=== PATIENT | male | born 1970 | race African-American/Black ===

== ENCOUNTER 2022-02-05 10:27 | Day surgery (SDC) | payer OTHER ==
[~2022-02-05] VITALS: Ht 175.3 cm; Wt 93.0 kg
[2022-02-05] MEDS ORDERED: LIDOCAINE 2% 100 MG/5 ML UJET TP ONE (12:16)
[2022-02-05] MEDS ORDERED: fentaNYL citrate 0.05 MG/ML VIAL ONE (12:16)
[2022-02-05] MEDS ORDERED: fentaNYL citrate 0.05 MG/ML VIAL IVP ONE (13:35)
== END 2022-02-05 13:25 | disposition home or self-care (01) ==
LOC: MDS 10:27 → MMU 10:28 → MDS 13:25
PROVIDERS: ATTEND Internal Medicine Gastroenterology
DX: Z12.11 Encounter for screening for malignant neoplasm of colon (principal); K63.5 Polyp of colon; K57.30 Diverticulosis of large intestine without perforation or abscess without bleeding; I10 Essential (primary) hypertension; Z79.899 Other long term (current) drug therapy; Z20.822 Contact with and (suspected) exposure to COVID-19
CPT/HCPCS: 45385; 87426; J3010